=== PATIENT | female | born 1995 | race Two or more races ===

== ENCOUNTER → 2025-09-09 | Outpatient (CLI) | payer MEDICAID, SELFPAY ==
--- NOTE | 2025-09-09 16:00 | XR_ITS ---
Examination: Pelvic ultrasound, transabdominal, complete Technique: Transabdominal ultrasound of the pelvis performed using grayscale imaging Date and time of exam: September 09, 2025, 1633 hours INDICATIONS: Pelvic pain beginning 6 months ago, history ovarian cysts FINDINGS: Uterus 7.4 cm endometrial stripe 0.6 cm No uterine mass or intrauterine gestation Right ovary 9.6 cm arterial flow, septated cyst 9.0 x 3.4 x 7.3 cm Left ovary 4.6 cm arterial flow, 4.3 x 2.9 x 3.1 cm cyst IMPRESSION: Bilateral ovarian cysts as above, recommend continued 6-month follow-up pelvic sonography
== END | disposition home or self-care (01) ==
PROVIDERS: PCP Nurse Practitioner Family; Referring Provider Nurse Practitioner Family; Visit Provider Nurse Practitioner Family
DX: N83.202 Unspecified ovarian cyst, left side (principal); N83.201 Unspecified ovarian cyst, right side
CPT/HCPCS: 76856

== ENCOUNTER → 2025-10-21 | Outpatient (CLI) | payer MEDICAID, SELFPAY ==
--- NOTE | 2025-10-21 16:30 | XR_ITS ---
Examination: MRI lumbar spine without contrast Date and time of exam: October 21, 2025, 1715 hours INDICATIONS: Lifting injury to the back 3 months ago with pain radiating to the right leg numbness in the right leg Technique: Multiple MRI axial and sagittal sections lumbar spine. Sagittal T2-weighted images, TR 3500, TE 118 T1 weighted transverse sections, TR 688 T8.5, T2-weighted sagittal sections T1 weighted sagittal sections TR 621, TE 30 T2 axial sections, TR 4, 190, TE 84. Findings: Satisfactory alignment lumbar vertebral bodies Advanced disc narrowing L4-L5 moderate disc narrowing L5-S1 No spondylolisthesis Wedge deformity, old T12 L5-S1 6 mm central lumbar disc bulge displacing the right S1 nerve root extending to the foraminal regions bilaterally with mild bilateral L5 ganglionic compression L4-L5 8 mm extruded central disc bulge contiguous with the right L5 nerve root L3-L4 4 mm right paracentral disc bulge More cephalad levels unremarkable IMPRESSION: L5-S1 6 mm central lumbar disc bulge displacing the right S1 nerve root and extending to the foraminal regions bilaterally with mild bilateral L5 ganglionic compression L4-L5 8 mm extruded central lumbar disc bulge contiguous with the right L5 nerve root
== END | disposition home or self-care (01) ==
PROVIDERS: PCP Nurse Practitioner Family; Referring Provider Nurse Practitioner Family; Visit Provider Nurse Practitioner Family
DX: M51.370 Other intervertebral disc degeneration, lumbosacral region with discogenic back pain only (principal); M51.360 Other intervertebral disc degeneration, lumbar region with discogenic back pain only; G95.20 Unspecified cord compression
CPT/HCPCS: 72148